=== PATIENT | female | born 1975 | race Caucasian/White ===

== ENCOUNTER → 2021-03-28 | Outpatient (CLI) | payer OTHER ==
[~2021-03-28] MED LIST: CALCIUM500 MG PO; FEOSOL325 MG PO; FISH OIL 1,0001 EAC4 PO; HYDROCODON-ACE1 EAC4 PO; IBUPROFEN600 MG PO; MAGNESIUM PO; NORCO 5-325 TA1 EACH PO; POTASSIUM PO; PROBIOTIC1 EACH PO; PROVERA10 MG PO; THERAGRAN M TAB1 EA PO; TURMERIC PO; VITAMIN B12 PO; VITAMIN D3 PO
[2021-03-28 09:46] LABS: HEMOGLOBIN 10.6 gm/dl (12.3-15.3); RED BLOOD COUNT 4.13 M/UL (4.00-5.10); WHITE BLOOD COUNT 7.4 K/UL (4.5-11.0)
== END ==
LOC: OPSV2 08:30
PROVIDERS: Obstetrics & Gynecology
DX: Z01.812 Encounter for preprocedural laboratory examination (principal); N93.9 Abnormal uterine and vaginal bleeding, unspecified
CPT/HCPCS: 36415; 81001; 85025

== ENCOUNTER → 2021-04-07 | Day surgery (SDC) | payer OTHER | END | disposition home or self-care (01) | LOC: OR 06:42 | DX: N84.0 Polyp of corpus uteri (principal); N93.9 Abnormal uterine and vaginal bleeding, unspecified; F17.200 Nicotine dependence, unspecified, uncomplicated | CPT/HCPCS: 36415; 84702; J1100; J1885; J2001; J2250; J2405; J2704; J2795; J3010; J7030; J7120 ==